=== PATIENT | female | born 1965 | race Caucasian/White ===

== ENCOUNTER → 2018-08-01 | Outpatient (CLI) | payer OTHER ==
[~2018-08-01] MED LIST: AC325T; CTLP20T PO; ESCT10T; HYDR-34 PO; IBP200T; IBP600T1 PO
--- NOTE | 2018-08-01 14:28 | Diagnostic Imaging Report ---
INDICATION: Pelvic pressure. Post reported hysterectomy in 2012. TECHNIQUE: Multiple real-time grayscale sonographic images were obtained of the pelvis transabdominally and endovaginally. CORRELATION STUDY: 06/29/2013. FINDINGS: The uterus and/or ovaries are not visualized. Patient reportedly still has her ovaries which could be perhaps obscured by overlying bowel gas. No significant free pelvic fluid. IMPRESSION: 1. Nonvisualization of the uterus compatible with hysterectomy. 2. The ovaries are not visualized, perhaps obscured by overlying bowel gas. Dictated by: Dictated on workstation # [id number]
--- NOTE | 2018-08-01 20:00 | Diagnostic Imaging Report ---
INDICATION: Routine screening. COMPARISON: Comparison is made with prior mammograms from 06/29/2013 and 05/29/2012. TECHNIQUE: 2D and 3D bilateral screening mammography was performed with computer-aided detection (CAD) system. FINDINGS: Both breasts remain heterogeneously dense, limiting the sensitivity of mammography. Benign calcifications are noted bilaterally. Previously noted density in the posterolateral left breast is not appreciated on today's study. There is a density in the retroareolar and slightly lateral aspect of the right breast on the CC view. No correlate on the MLO view is seen. Additional views are recommended. No malignant appearing microcalcifications are seen. IMPRESSION: Rounded density, retroareolar right breast. Spot compression and rolled CC views are recommended for further evaluation. ACR BI-RADS Category 0: Incomplete. (Needs additional imaging evaluation). Result letter will be mailed to the patient. Note: At least 10% of breast cancer is not imaged by mammography. Dictated by: Dictated on workstation # [id number]
== END ==
LOC: RAD 09:40
PROVIDERS: ATTEND Obstetrics & Gynecology
DX: Z12.31 Encounter for screening mammogram for malignant neoplasm of breast (principal); R92.8 Other abnormal and inconclusive findings on diagnostic imaging of breast; R10.2 Pelvic and perineal pain
CPT/HCPCS: 76830; 76856; 77067